=== PATIENT | female | born 1995 | race Caucasian/White ===

== ENCOUNTER 2018-02-14 12:52 | Emergency (ER) | payer OTHER, MEDICAID ==
[~2018-02-14] VITALS: Ht 160 cm; Wt 113.4 kg
[~2018-02-14 12:52] MED LIST: CELEXA 10 MG TA10 M1; FLEXERIL PO; HYDROCODONE-APA1 TA1 PO; LEXAPRO20 MG
[2018-02-14] MEDS ORDERED: MIRENA1 EACH IMPLANT (13:07)
[2018-02-14 13:40] LABS: ABSOLUTE EOSINOPHILS 0.2 thou/uL (0.0-0.7); ABSOLUTE MONOCYTES 0.5 thou/uL (0.0-1.2); ABSOLUTE NEUTROPHILS 1.9 thou/uL (1.6-8.1); BASOPHILS 0.4 %; EOSINOPHILS 4.9 %; HEMOGLOBIN 13.6 gm/dL (12.0-15.0); MCHC 33.1 g/dL (28.0-37.0); MCV 87.5 fL (80.0-100.0); MONOCYTES 10.8 %; MPV 8.8 fl. (7.2-11.1); NUCLEATED RBCS 0 /100WBC; PLATELET COUNT* 237 thou/uL (150-400); POLYS 40.9 %; RBC 4.69 mil/uL (4.20-5.00); RDW-CV 13.2 % (10.5-14.5); WBC 4.6 thou/uL (4.0-11.0)
[2018-02-14 13:44] LABS: ANION GAP 6 mmol/L (7-16); BUN 20 mg/dL (7-18); CALCIUM 8.9 mg/dL (8.5-10.1); CHLORIDE 106 mmol/L (98-107); CO2 29 mmol/L (21-32); CREATININE 0.8 mg/dL (0.6-1.3); GLUCOSE 88 mg/dL (70-99); POTASSIUM 3.9 mmol/L (3.5-5.1); SODIUM 141 mmol/L (136-145)
[2018-02-14 13:55] LABS: ALBUMIN 3.3 g/dL (3.4-5.0); ALKALINE PHOSPHATASE 67 U/L (46-116); NT-PRO BRAIN NAT PEPTIDE 26 pg/mL (<300); SGOT 19 U/L (15-37); SGPT 25 U/L (30-65); TOTAL BILIRUBIN 0.2 mg/dL (<0.1-1.0); TROPONIN-I LEVEL <0.06 ng/mL (<0.06)
--- NOTE | 2018-02-14 15:12 | EKG ---
[place] [address] ELECTROCARDIOGRAM REPORT Name: SUDHAKAR HAIR Room: [facility]#: [id number] Admission: 02/14/18 Attend Phys: Discharge: Date of : [birth year] Report #: [id number] THIS REPORT FOR: //name// [facility] ED Test Date: 2018-02-14 Test Time: 12:57:15 Pat Name: SUDHAKAR HAIR Department: Room: Gender: F Phd Intern: [facility] : 1995 Requested By: Seble Dockery Order Number: [id number] MD: Amilcar Guajardo Measurements Intervals [place] Rate: 67 P: 3 [place]: 153 QRS: 23 QRSD: 79 T: 10 QT: 391 QTc: 413 Interpretive Statements Sinus rhythm No previous ECG available for comparison Electronically Signed On 02-14-2018 15:12:38 [employer] ENGINEER by Amilcar Guajardo [email or web address] <ELECTRONICALLY SIGNED> By: Amilcar Guajardo MD, [facility] 02/14/18 1512 1257 [facility] Amilcar Guajardo MD, FACC /EPI
[2018-02-14 15:20] LABS: URINE BILIRUBIN NEGATIVE (Negative); URINE BLOOD NEGATIVE (Negative); URINE CLARITY CLEAR; URINE COLOR YELLOW; URINE GLUCOSE-RANDOM NEGATIVE (Negative); URINE KETONES NEGATIVE (Negative); URINE LEUKOCYTES-REFLEX TRACE (Negative); URINE NITRITE-REFLEX NEGATIVE (Negative); URINE PROTEIN NEGATIVE (Negative); URINE UROBILINOGEN 0.2 E.U./dl (0.2-1.0)
[2018-02-14 15:26] LABS: BACTERIA-REFLEX 1-9 Few /HPF (None Seen); SQUAMOUS >10 Many /LPF (0-3); URINE RBC 0-2 Rare /HPF (0-2); URINE WBC-REFLEX 0-5 Rare /HPF (0-5)
[2018-02-14 15:27] LABS: CASTS None Seen /LPF (None Seen); CRYSTALS None Seen /LPF (None Seen)
[2018-02-14 15:32] LABS: AMP/METHAMP Negative (Negative); BARBITURATES Negative (Negative); BENZODIAZEPINES Negative (Negative); COCAINE Negative (Negative); METHADONE Negative (Negative); OPIATES Negative (Negative); PCP Negative (Negative); THC Negative (Negative)
[2018-02-14] MEDS ORDERED: NABUMETONE 750750 M1 PO (15:34)
[2018-02-14 15:40] VITALS: BP 109/62
[2018-02-15] MEDS ORDERED: MEDROLDOSEPACK PO (13:52)
[2018-02-15] MEDS ORDERED: ACETAMINOPHEN-1 EAC1 PO (13:54)
== END 2018-02-14 15:40 | disposition short-term general hospital (02) ==
LOC: M.ERS 12:52
PROVIDERS: Nurse Practitioner Family
DX: R51 Headache (principal); R07.89 Other chest pain; R20.2 Paresthesia of skin; F32.9 Major depressive disorder, single episode, unspecified; I50.9 Heart failure, unspecified; Z88.8 Allergy status to other drugs, medicaments and biological substances; Z79.899 Other long term (current) drug therapy

== ENCOUNTER 2018-02-15 11:10 | Emergency (ER) | payer OTHER, MEDICAID ==
[~2018-02-15] VITALS: Ht 160 cm; Wt 113.4 kg
[~2018-02-15 11:10] MED LIST changes: +MIRENA1 EACH IMPLANT; +NABUMETONE 750750 M1 PO
[2018-02-15 12:17] LABS: ABSOLUTE EOSINOPHILS 0.2 thou/uL (0.0-0.7); ABSOLUTE LYMPHOCYTES 2.2 thou/uL (0.8-5.3); ABSOLUTE MONOCYTES 0.5 thou/uL (0.0-1.2); ABSOLUTE NEUTROPHILS 3.1 thou/uL (1.6-8.1); BASOPHILS 0.4 %; EOSINOPHILS 2.8 %; HEMATOCRIT 43.7 % (37.0-47.0); HEMOGLOBIN 14.7 gm/dL (12.0-15.0); LYMPHOCYTES 36.7 %; MCH 29.4 pg (26.0-34.0); MCHC 33.8 g/dL (28.0-37.0); MCV 87.1 fL (80.0-100.0); MONOCYTES 8.5 %; MPV 8.4 fl. (7.2-11.1); NUCLEATED RBCS 0 /100WBC; PLATELET COUNT* 264 thou/uL (150-400); POLYS 51.6 %; RBC 5.01 mil/uL (4.20-5.00); RDW-CV 13.1 % (10.5-14.5)
[2018-02-15 12:27] LABS: ANION GAP 8 mmol/L (7-16); BUN 16 mg/dL (7-18); CALCIUM 9.4 mg/dL (8.5-10.1); CHLORIDE 104 mmol/L (98-107); CO2 29 mmol/L (21-32); CREATININE 0.8 mg/dL (0.6-1.3); GLUCOSE 91 mg/dL (70-99); POTASSIUM 4.1 mmol/L (3.5-5.1); SODIUM 141 mmol/L (136-145)
[2018-02-15 12:30] LABS: SGPT 28 U/L (30-65)
[2018-02-15 12:47] LABS: ALBUMIN 3.7 g/dL (3.4-5.0); ALKALINE PHOSPHATASE 70 U/L (46-116); SGOT 18 U/L (15-37); TOTAL BILIRUBIN 0.3 mg/dL (<0.1-1.0); TOTAL PROTEIN 7.5 g/dL (6.4-8.2); TROPONIN-I LEVEL <0.06 ng/mL (<0.06)
[2018-02-15 13:23] LABS: ESR (SEDRATE) 7 mm/hr (0-20)
[2018-02-15] MEDS ORDERED: MEDROLDOSEPACK PO (13:52)
[2018-02-15] MEDS ORDERED: ACETAMINOPHEN-1 EAC1 PO (13:54)
[2018-02-15 14:10] VITALS: BP 107/70
== END 2018-02-15 14:11 | disposition home or self-care (01) ==
LOC: M.ERS 11:10
PROVIDERS: Physician Assistant
DX: R07.89 Other chest pain (principal); M79.601 Pain in right arm; R20.2 Paresthesia of skin; F32.9 Major depressive disorder, single episode, unspecified; I50.9 Heart failure, unspecified; Z88.8 Allergy status to other drugs, medicaments and biological substances

== ENCOUNTER 2020-10-09 19:52 | Emergency (ER) | payer OTHER, MEDICAID ==
[~2020-10-09] VITALS: Ht 160 cm; Wt 127.0 kg
[~2020-10-09 19:52] MED LIST changes: +ACETAMINOPHEN-1 EAC1 PO; +MEDROLDOSEPACK PO
[2020-10-09] MEDS ORDERED: NEXPLANON68 MG SUBQ (19:59)
[2020-10-09 21:55] VITALS: BP 146/81
--- NOTE | 2020-10-12 13:35 | EKG ---
[place] [address] ELECTROCARDIOGRAM REPORT Name: SUDHAKAR HAIR Room: [facility]#: [id number] Admission: 10/09/20 Attend Phys: Discharge: 10/09/20 Date of : [birth year] Date of Service: 10/09/20 [facility] Report #: [id number] THIS REPORT FOR: //name// 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1995 Requested By: Nadeen Bailey Order Number: [id number] Alice MD: Amilcar Guajardo Measurements Intervals [place] Rate: 67 P: 33 [place]: 180 QRS: 44 QRSD: 94 T: 23 QT: 417 QTc: 441 Interpretive Statements Sinus arrhythmia Consider left atrial enlargement Low voltage, precordial leads Baseline wander in lead(s) II,III,aVF Compared to ECG 02/14/2018 12:57:15 Low QRS voltage now present Sinus rhythm no longer present Electronically Signed On 10-12-2020 13:35:27 CDT by Amilcar Guajardo [email or web address] <ELECTRONICALLY SIGNED> By: Amilcar Guajardo MD, FACC 10/12/20 1335 03 03 Amilcar Guajardo MD, FAC /EPI
== END 2020-10-09 21:55 | disposition home or self-care (01) ==
LOC: M.ERS 19:52
DX: Z53.21 Procedure and treatment not carried out due to patient leaving prior to being seen by health care provider (principal)

== ENCOUNTER 2020-12-10 10:04 | Emergency (ER) | payer OTHER, MEDICAID ==
[~2020-12-10] VITALS: Ht 160 cm; Wt 131.5 kg
[~2020-12-10 10:04] MED LIST changes: +NEXPLANON68 MG SUBQ
[2020-12-10] MEDS ORDERED: ADDERALL (10:26)
[2020-12-10] MEDS ORDERED: CRESTOR (10:26)
[2020-12-10] MEDS ORDERED: CITALOPRAM (10:26)
[2020-12-10] MEDS ORDERED: SUPER THERAVIT1 EACH PO (10:27)
[2020-12-10] MEDS ORDERED: APAP W/CODEINE1 TA2 PO (11:08)
[2020-12-10] MEDS ORDERED: VALACYCLOVIR1000 MG PO (11:08)
[2020-12-10] MEDS ORDERED: DOXYCYCLINE 10100 MG PO (11:08)
[2020-12-10 11:23] VITALS: BP 140/86
[2020-12-10] MEDS ORDERED: PERCOCET 7.5-31 EAC1 PO (23:26)
== END 2020-12-10 11:25 | disposition home or self-care (01) ==
LOC: M.ERS 10:04
DX: R21 Rash and other nonspecific skin eruption (principal); I50.9 Heart failure, unspecified; F32.9 Major depressive disorder, single episode, unspecified; Z79.899 Other long term (current) drug therapy; Z88.8 Allergy status to other drugs, medicaments and biological substances

== ENCOUNTER 2020-12-10 22:00 | Emergency (ER) | payer OTHER, MEDICAID ==
[~2020-12-10] VITALS: Ht 160 cm; Wt 131.5 kg
[~2020-12-10 22:00] MED LIST changes: +ADDERALL; +APAP W/CODEINE1 TA2 PO; +CITALOPRAM; +CRESTOR; +DOXYCYCLINE 10100 MG PO; +SUPER THERAVIT1 EACH PO; +VALACYCLOVIR1000 MG PO
[2020-12-10 22:43] LABS: ABSOLUTE BASOPHILS 0.1 thou/uL (0.0-0.2); ABSOLUTE EOSINOPHILS 0.2 thou/uL (0.0-0.7); ABSOLUTE LYMPHOCYTES 3.3 thou/uL (0.8-5.3); ABSOLUTE MONOCYTES 0.6 thou/uL (0.0-1.2); ABSOLUTE NEUTROPHILS 3.5 thou/uL (1.6-8.1); BASOPHILS 0.7 %; EOSINOPHILS 3.2 %; HEMATOCRIT 41.1 % (37.0-47.0); HEMOGLOBIN 13.6 gm/dL (12.0-15.0); LYMPHOCYTES 42.4 %; MCHC 33.2 g/dL (28.0-37.0); MCV 87.4 fL (80.0-100.0); MONOCYTES 8.2 %; MPV 8.1 fl. (7.2-11.1); NUCLEATED RBCS 0 /100WBC; PLATELET COUNT* 273 thou/uL (150-400); POLYS 45.5 %; RDW-CV 13.5 % (10.5-14.5); WBC 7.8 thou/uL (4.0-11.0)
[2020-12-10 22:49] LABS: CALCIUM 8.9 mg/dL (8.5-10.1); POTASSIUM 4.2 mmol/L (3.5-5.1)
[2020-12-10] MEDS ORDERED: PERCOCET 7.5-31 EAC1 PO (23:26)
[2020-12-11 01:19] VITALS: BP 121/83
== END 2020-12-11 01:19 | disposition home or self-care (01) ==
LOC: M.ERS 22:00
PROVIDERS: Emergency Medicine
DX: L03.114 Cellulitis of left upper limb (principal); F32.9 Major depressive disorder, single episode, unspecified; I50.9 Heart failure, unspecified; Z79.891 Long term (current) use of opiate analgesic; Z79.899 Other long term (current) drug therapy; Z88.8 Allergy status to other drugs, medicaments and biological substances

== ENCOUNTER 2020-12-14 11:13 | Emergency (ER) | payer OTHER, MEDICAID ==
[~2020-12-14] VITALS: Ht 160 cm; Wt 131.5 kg
[~2020-12-14 11:13] MED LIST changes: +PERCOCET 7.5-31 EAC1 PO
[2020-12-14] MEDS ORDERED: VRAYLAR3 MG PO (11:26)
[2020-12-14] MEDS ORDERED: CEPHALEXIN500 MG PO (14:36)
[2020-12-14 14:54] VITALS: BP 135/58
== END 2020-12-14 14:56 | disposition home or self-care (01) ==
LOC: M.ERS 11:13
DX: I80.8 Phlebitis and thrombophlebitis of other sites (principal); F32.9 Major depressive disorder, single episode, unspecified; I50.9 Heart failure, unspecified; Z79.891 Long term (current) use of opiate analgesic; Z79.899 Other long term (current) drug therapy; Z88.8 Allergy status to other drugs, medicaments and biological substances